=== PATIENT | male | born 1935 | race Caucasian/White ===

== ENCOUNTER 2016-07-15 15:58 | Outpatient (CLI) | payer MEDICARE ==
[2016-07-15 16:24] LABS: INR-International Normal Ratio 1.9; Prothrombin Time 21.4 SEC (12.0-14.7)
== END 2016-07-15 15:59 | disposition home or self-care (01) ==
LOC: MADLAB 15:58
PROVIDERS: ATTEND Family Medicine
DX: Z51.81 Encounter for therapeutic drug level monitoring (principal); Z79.01 Long term (current) use of anticoagulants
CPT/HCPCS: 36415; 85610

== ENCOUNTER 2016-09-11 17:16 | Outpatient (CLI) | payer MEDICARE ==
[2016-09-11 18:40] LABS: #Basophils 0.1 thou/uL (0.0-0.2); #Eosinphils 0.4 thou/uL (0.0-0.7); #Lymphocytes 1.1 thou/uL (1.20-3.40); #Monocytes 0.8 thou/uL (0.11-0.59); #Neutrophils 4.7 thou/uL (1.40-6.50); %Basophils 1.8 % (0.0-1.0); %Eosinophils 5.7 % (0.0-10.0); %Lymphocytes 15.9 % (21.0-51.0); %Neutrophils 65.5 % (42.0-75.0); Hemoglobin 12.3 g/dL (14.0-18.0); Mean Corpuscular HGB CONC 31.9 g/dL (32.0-36.0); Mean Corpuscular Hemoglobin 31.4 pg (27.0-31.0); Mean Corpuscular Volume 98.3 fl (80.0-94.0); Mean Platelet Volume 8.8 fL (7.4-10.4); Platelet Count 161 thou/uL (130-400); RBC Distribution Width 14.5 % (11.5-14.5); Red Blood Cell (RBC) Count 3.92 mill/uL (4.70-6.10); White Blood Cell (WBC) Count 7.1 thou/uL (4.8-10.8)
[2016-09-11 18:45] LABS: ALT (SGPT) 14 U/L (0-55); AST (SGOT) 28 U/L (5-34); Albumin 3.8 g/dL (3.4-4.8); Alkaline Phosphatase 115 U/L (40-150); Anion Gap 15 mmol/L (10-20); BUN (Urea Nitrogen) 24 mg/dL (8.4-25.7); Bilirubin, Total 1.3 mg/dL (0.2-1.2); Calc. Creatinine Clearance 0 mL/min (70-130); Calcium 10.1 mg/dL (7.8-10.44); Carbon Dioxide 23 mmol/L (23-31); Chloride 104 mmol/L (98-107); Estimated GFR-MDRD 48; Glucose 119 mg/dL (83-110); Potassium 4.3 mmol/L (3.5-5.1); Protein, Total 6.8 g/dL (5.8-8.1); Sodium 138 mmol/L (136-145)
[2016-09-11 18:48] LABS: INR-International Normal Ratio 1.8; PTT 37.1 SEC (22.9-36.1)
== END 2016-09-11 17:17 | disposition home or self-care (01) ==
LOC: MADLAB 17:16
PROVIDERS: ATTEND Family Medicine
DX: E78.4 Other hyperlipidemia (principal); K21.9 Gastro-esophageal reflux disease without esophagitis; R60.9 Edema, unspecified; Z95.3 Presence of xenogenic heart valve
CPT/HCPCS: 36415; 80053; 83880; 84443; 85025; 85610; 85730

== ENCOUNTER 2016-10-28 14:50 | Emergency (ER) | payer MEDICARE ==
[2016-10-28 15:56] LABS: #Basophils 0.2 thou/uL (0.0-0.2); #Eosinphils 0.4 thou/uL (0.0-0.7); #Lymphocytes 0.9 thou/uL (1.20-3.40); #Monocytes 0.7 thou/uL (0.11-0.59); #Neutrophils 6.4 thou/uL (1.40-6.50); %Basophils 1.9 % (0.0-1.0); %Eosinophils 4.4 % (0.0-10.0); %Lymphocytes 10.4 % (21.0-51.0); %Monocytes 8.5 % (0.0-10.0); %Neutrophils 74.9 % (42.0-75.0); Hemoglobin 7.3 g/dL (14.0-18.0); Mean Corpuscular HGB CONC 32.1 g/dL (32.0-36.0); Mean Corpuscular Hemoglobin 30.4 pg (27.0-31.0); Mean Corpuscular Volume 94.8 fl (80.0-94.0); Mean Platelet Volume 5.7 fL (7.4-10.4); Platelet Count 288 thou/uL (130-400); RBC Distribution Width 16.2 % (11.5-14.5); Red Blood Cell (RBC) Count 2.41 mill/uL (4.70-6.10); White Blood Cell (WBC) Count 8.6 thou/uL (4.8-10.8)
[2016-10-28 16:08] LABS: ALT (SGPT) 24 U/L (0-55); AST (SGOT) 29 U/L (5-34); Albumin 3.1 g/dL (3.4-4.8); Alkaline Phosphatase 118 U/L (40-150); Anion Gap 15 mmol/L (10-20); BUN (Urea Nitrogen) 35 mg/dL (8.4-25.7); Calc. Creatinine Clearance 0 mL/min (70-130); Carbon Dioxide 22 mmol/L (23-31); Chloride 102 mmol/L (98-107); Estimated GFR-MDRD 54; Globulin 2.7 g/dL (2.4-3.5); Glucose 86 mg/dL (83-110); Potassium 5.1 mmol/L (3.5-5.1); Protein, Total 5.8 g/dL (5.8-8.1); Sodium 134 mmol/L (136-145)
[2016-10-28 17:49] LABS: Bilirubin Negative (Negative); Blood, Urine Negative (Negative); Clarity Clear (Clear); Glucose, Urine (Dipstick) Negative (Negative); Leukocyte Negative (Negative); Nitrite Negative (Negative); Protein, Urine (Dipstick) Negative (Neg-Trace); Urobilinogen 0.2 mg/dL (0.2-1.0)
--- NOTE | 2016-10-28 18:51 | RAD ---
CHEST 1 VIEW: HISTORY: Dyspnea. FINDINGS: The cardiac silhouette is magnified and enlarged. Pulmonary vasculature is slightly engorged and ac centuated by shallow inspiration. Mediastinum is midline with aortic calcification and sternotomy w ires. There is mild atelectasis at each lung base. Gas overlying the right upper abdomen demonstra anna haustra and is consistent with interposition of the hepatic flexure of the colon between the juan jose er and the right hemidiaphragm. field auto appraiser leads overlie the chest. IMPRESSION: 1. Cardiomegaly with mild pulmonary vascular congestion. 2. Atherosclerosis. POS: KATHY
[2016-10-28 19:05] LABS: INR-International Normal Ratio 2.2; Prothrombin Time 24.3 SEC (12.0-14.7)
== END 2016-10-28 17:34 | disposition short-term general hospital (02) ==
LOC: MADERS 14:50
DX: I11.0 Hypertensive heart disease with heart failure (principal); I50.9 Heart failure, unspecified; D64.9 Anemia, unspecified; I25.10 Atherosclerotic heart disease of native coronary artery without angina pectoris; E78.5 Hyperlipidemia, unspecified
CPT/HCPCS: 51702; 71010; 80053; 81003; 82553; 83880; 84484; 85025; 85610

== ENCOUNTER 2016-11-11 13:47 | Outpatient (CLI) | payer MEDICARE ==
[2016-11-11 14:38] LABS: Hemoglobin 8.3 g/dL (14.0-18.0)
[2016-11-11 14:53] LABS: Anion Gap 20 mmol/L (10-20); BUN (Urea Nitrogen) 50 mg/dL (8.4-25.7); Calc. Creatinine Clearance 0 mL/min (70-130); Calcium 10.4 mg/dL (7.8-10.44); Carbon Dioxide 22 mmol/L (23-31); Chloride 98 mmol/L (98-107); Estimated GFR-MDRD 36; Glucose 99 mg/dL (83-110); Potassium 5.7 mmol/L (3.5-5.1); Sodium 134 mmol/L (136-145)
== END 2016-11-11 13:48 | disposition home or self-care (01) ==
LOC: MADLAB 13:47
PROVIDERS: ATTEND Family Medicine
DX: I50.23 Acute on chronic systolic (congestive) heart failure (principal); Z51.81 Encounter for therapeutic drug level monitoring; Z79.01 Long term (current) use of anticoagulants
CPT/HCPCS: 36415; 80048; 85014; 85018